=== PATIENT | male | born 1980 | race Caucasian/White ===

== ENCOUNTER 2021-05-15 12:37 | Emergency (ER) | payer OTHER ==
[~2021-05-15] VITALS: Ht 170.2 cm; Wt 83.9 kg
[2021-05-15] MEDS ORDERED: ONDANSETRON HCL 4 MG ORAL DISINTEGRATING TAB PO ONE (13:00)
[2021-05-15] MEDS ORDERED: MAALOX MAXIMUM355 ML PO (13:08)
[2021-05-15] MEDS ORDERED: ONDANSETRON ODT4 MG PO (13:08)
[2021-05-15] MEDS ORDERED: OMEPRAZOLE20 M2 PO (13:08)
[2021-05-15] MEDS ORDERED: ONDANSETRON HCL 4 MG ORAL DISINTEGRATING TAB ONE (13:14)
== END 2021-05-15 13:15 | disposition home or self-care (01) ==
LOC: FSED 13:00
DX: R10.84 Generalized abdominal pain (principal); K29.70 Gastritis, unspecified, without bleeding; K21.9 Gastro-esophageal reflux disease without esophagitis; R11.0 Nausea; F17.210 Nicotine dependence, cigarettes, uncomplicated
CPT/HCPCS: 99283; Q0162

== ENCOUNTER 2022-07-08 15:42 | Emergency (ER) | payer OTHER ==
[~2022-07-08] VITALS: Ht 170.2 cm; Wt 86.2 kg
[~2022-07-08 15:42] MED LIST: MAALOX MAXIMUM355 ML PO; OMEPRAZOLE20 M2 PO; ONDANSETRON ODT4 MG PO
[2022-07-08] MEDS ORDERED: TIZANIDINE HCL4 M1 PO (16:39)
== END 2022-07-08 16:48 | disposition home or self-care (01) ==
LOC: FSED 15:47
DX: S76.811A Strain of other specified muscles, fascia and tendons at thigh level, right thigh, initial encounter (principal); Y93.02 Activity, running; Y99.0 Civilian activity done for income or pay
CPT/HCPCS: 99284